=== PATIENT | male | born 1955 | race Caucasian/White ===

== ENCOUNTER 2019-02-17 13:39 | Emergency (ER) | payer MEDICAID ==
[~2019-02-17] VITALS: Ht 172.7 cm; Wt 75.0 kg
[2019-02-17 16:18] VITALS: BP 149/97
== END 2019-02-17 16:25 | disposition home or self-care (01) ==
LOC: ER 13:57
DX: S52.502A Unspecified fracture of the lower end of left radius, initial encounter for closed fracture (principal); F20.9 Schizophrenia, unspecified; Y08.89XA Assault by other specified means, initial encounter; Y93.9 Activity, unspecified; Y92.9 Unspecified place or not applicable
CPT/HCPCS: 29125; 73070; 73090; 99283